=== PATIENT | female | born 1975 | race Caucasian/White ===

== ENCOUNTER 2023-06-24 13:04 | Emergency (ER) | payer OTHER ==
[2023-06-24] MEDS ORDERED: SODIUM CHLORIDE 0.9% 1,000 ML IV STA (13:22)
[2023-06-24] MEDS ORDERED: IBUPROFEN 600 MG TABLET PO STA (13:33)
[2023-06-24] MEDS ORDERED: ACETAMINOPHEN 325 MG TABLET PO STA (13:33)
[2023-06-24] MEDS ORDERED: HYDROmorphone 0.5 MG/0.5 ML SYRINGE IVP STA (13:34)
--- NOTE | 2023-06-24 13:36 | ED Physician Documentation ---
PD HPI ABD PAIN - Stated complaint Stated Complaint: ABD PX - Chief complaint Chief Complaint: Abd Pain - History obtained from History obtained from: Patient - Additional information Additional information: The patient comes to the emergency department with chief complaint of low abdominal pain, fever, and chills over the last 3 days. She states that she just has a general ache that goes all the way across her low abdomen. She states she has had a uterine ablation a few years ago but other than that, no procedures on her abdomen. No abdominal conditions. She has all her organs. No history of kidney stone or diverticulitis. No dysuria or hematuria. No vaginal discharge. She is . No stool changes, other than the urge to go frequently. No other symptoms of infection, such as cough, shortness of breath, or sore throat. No nausea or vomiting. No other complaints at this time. PD PAST MEDICAL HISTORY - Present Medications Home Medications: Ambulatory Orders Medication Instructions Recorded Confirmed HYDROcod/ACETAM 5/325 [[place] 5/325] 1 - 2 tablet PO Q6H PRN #14 tablet 06/24/23 Ondansetron Odt [Zofran] 4 mg TL Q6H PRN #10 tablet 06/24/23 levoFLOXacin [Levaquin] 500 mg PO QD #14 tablet 06/24/23 metroNIDAZOLE [Flagyl] 500 mg PO BID 14 Days #28 tablet 06/24/23 - Allergies Allergies/Adverse Reactions: Allergies Allergy/AdvReac Type Severity Reaction Status Date / Time No Known Drug Allergies Allergy Verified 06/24/23 13:12 PD ED PE NORMAL - Vitals Vital signs reviewed: Yes - General General: Alert and oriented X 3, No acute distress, Well developed/nourished, Other (The patient appears mildly uncomfortable but otherwise no apparent distress.) - HEENT HEENT: Atraumatic, PERRL, EOMI, Moist mucous membranes - Neck Neck: Supple, no meningeal sign - Cardiac Cardiac: No murmur, Other (Tachycardic rate regular rhythm no murmurs.) - Respiratory Respiratory: No respiratory distress, Clear bilaterally - Abdomen Abdomen: Soft, Non distended, Other (Moderate diffuse abdominal tenderness across the low abdomen with exquisite tenderness in the right flank.) - Derm Derm: Normal color, Warm and dry, No rash - Extremities Extremities: No deformity, No edema - Neuro Neuro: Alert and oriented X 3, 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, Normal speech - Psych Psych: Normal mood, Normal affect Results - Vitals Vitals: Oxygen O2 Source Room air - Labs Labs: Microbiology 06/24/23 13:52 Blood Culture - Preliminary Blood - Left Arm NO GROWTH AFTER 1 DAY 06/24/23 13:39 Blood Culture - Preliminary Blood - Right Iv-Start NO GROWTH AFTER 1 DAY Laboratory Tests 06/24/23 06/24/23 06/24/23 13:14 13:14 13:39 WBC 13.9 H RBC 4.58 Hgb 14.0 Hct 41.6 MCV 90.8 MCH 30.6 MCHC 33.7 RDW 12.3 Plt Count 308 MPV 9.0 Neut # (Auto) 10.7 H Lymph # (Auto) 2.2 [place] # (Auto) 0.8 Eos # (Auto) 0.2 Baso # (Auto) 0.1 Absolute Nucleated RBC 0.00 Nucleated RBC % 0.0 Sodium Potassium Chloride Carbon Dioxide Anion Gap BUN Creatinine Estimated GFR (MDRD) Glucose Lactic Acid Calcium Total Bilirubin AST ALT Alkaline Phosphatase Total Protein Albumin Globulin Albumin/Globulin Ratio Lipase Urine Color YELLOW Urine Clarity CLEAR Urine pH 7.0 Ur Specific [place] 1.020 Urine Protein NEGATIVE Urine Glucose (UA) NEGATIVE Urine Ketones 15 H Urine Occult Blood NEGATIVE Urine Nitrite NEGATIVE Urine Bilirubin NEGATIVE Urine Urobilinogen 0.2 (NORMAL) Ur Leukocyte Esterase NEGATIVE Ur Microscopic Review NOT INDICATED Urine Culture Comments NOT INDICATED Urine HCG, Qual NEGATIVE 06/24/23 06/24/23 13:39 13:39 WBC RBC Hgb Hct MCV MCH MCHC RDW Plt Count MPV Neut # (Auto) Lymph # (Auto) [place] # (Auto) Eos # (Auto) Baso # (Auto) Absolute Nucleated RBC Nucleated RBC % Sodium 135 Potassium 3.7 Chloride 103 Carbon Dioxide 24 Anion Gap 8.0 BUN 7 Creatinine 0.6 Estimated GFR (MDRD) 106 Glucose 104 Lactic Acid 1.0 Calcium 9.4 Total Bilirubin 0.9 AST 11 ALT 18 Alkaline Phosphatase 58 Total Protein 7.7 Albumin 4.3 Globulin 3.4 Albumin/Globulin Ratio 1.3 Lipase 20 Urine Color Urine Clarity Urine pH Ur Specific [place] Urine Protein Urine Glucose (UA) Urine Ketones Urine Occult Blood Urine Nitrite Urine Bilirubin Urine Urobilinogen Ur Leukocyte Esterase Ur Microscopic Review Urine Culture Comments Urine HCG, Qual PD Medical Decision Making - ED course Complexity details: reviewed results, re-evaluated patient, considered differential, d/w patient, d/w family ED course: The patient was treated symptomatically with IV fluids, Dilaudid, ibuprofen, and Tylenol. She was worked up with laboratory studies including CBC, ER abdominal panel, blood cultures, and lactic acid level. Urinalysis was also ordered and ultimately, CT scan of the abdomen and pelvis.The patient was found to have diverticulitis on CT. She was started on antibiotics for this and was found to be feeling much better after symptomatic treatment. Her laboratory studies were reassuring and I felt she was stable for discharge home. We have discussed the need for antibiotics at home and I have prescribed these for her. We have discussed the usual indications for follow-up and return. Departure - Departure Disposition: Home, Self Care Clinical Impression: Diverticulitis of gastrointestinal tract Condition: Stable Instructions: ED Diverticulitis Prescriptions: metroNIDAZOLE [Flagyl] 500 mg PO BID 14 Days #28 tablet levoFLOXacin [Levaquin] 500 mg PO QD #14 tablet HYDROcod/ACETAM 5/325 [[place] 5/325] 1 - 2 tablet PO Q6H PRN #14 tablet PRN Reason: Pain Ondansetron Odt [Zofran] 4 mg TL Q6H PRN #10 tablet PRN Reason: Nausea / Vomiting Comments: Your CT scan shows diverticulitis, and inflammation of pouches that can sometimes protrude from your due to stool wall. While this is not something that everybody has, the presence of the pouches, called diverticulosis, is not an uncommon condition. The condition generally is very treatable with antibiotics and tends to respond very well. Please meat pickler your antibiotics and other meds at the [facility] in [place] this afternoon. Your next dose this will be due tomorrow morning. It would likely be at least a couple of days before you begin to notice an improvement in your symptoms and may be a few days longer than that. You may take the pain and nausea medications as nee ded. You should take ibuprofen 600 mg every 6 hours for fever. If you are not taking the Vicodin, you may take plain Tylenol for your fever, but if you are taking the pain medication, which also contains acetaminophen, you should hold off on taking any plain acetaminophen/Tylenol. If you want to eat you may, but please stick to simple starches that are easy to digest initially, and then progressed to a high-fiber diet to keep your stool soft. Please follow-up with your primary doctor as needed. If you begin to notice that your pain is getting progressively worse despite antibiotics, please return to the emergency department. Forms: PCP List Discharge Date/Time: 06/24/23 16:16
[2023-06-24 13:40] LABS: BILIRUBIN,URINE NEGATIVE (NEGATIVE); GLUCOSE, URINE (UA) NEGATIVE (NEGATIVE); KETONES,URINE (UA) 15 mg/dL (NEGATIVE); LEUKOCYTE ESTERASE, URINE NEGATIVE (NEGATIVE); NITRITE,URINE NEGATIVE (NEGATIVE); OCCULT BLOOD,URINE NEGATIVE (NEGATIVE); PROTEIN,URINE NEGATIVE (NEGATIVE); UROBILINOGEN,URINE 0.2 (NORMAL) E.U./dL (NORMAL)
[2023-06-24 13:45] LABS: BASOPHILS # (AUTO) 0.1 10^3/uL (0.0-0.1); BASOPHILS % (AUTO) 0.4 %; EOSINOPHILS # (AUTO) 0.2 10^3/uL (0.0-0.7); EOSINOPHILS % (AUTO) 1.2 %; HCT - HEMATOCRIT 41.6 % (37.0-47.0); LYMPHOCYTES # (AUTO) 2.2 10^3/uL (1.5-3.5); LYMPHOCYTES % (AUTO) 15.9 %; MEAN CORPUSCULAR HEMOGLOBIN 30.6 pg (27.0-31.0); MEAN CORPUSCULAR HGB CONC 33.7 g/dL (32.0-36.0); MEAN CORPUSCULAR VOLUME 90.8 fL (81.0-99.0); MONOCYTES # (AUTO) 0.8 10^3/uL (0.0-1.0); MONOCYTES % (AUTO) 5.5 %; NEUTROPHILS # (AUTO) 10.7 10^3/uL (1.5-6.6); NEUTROPHILS % (AUTO) 76.6 %; PLT - PLATELET COUNT 308 10^3/uL (130-450); RED BLOOD COUNT 4.58 10^6/uL (4.20-5.40); RED CELL DISTRIBUTION WIDTH 12.3 % (12.0-15.0); WHITE BLOOD COUNT 13.9 x10^3/uL (4.8-10.8)
[2023-06-24 13:46] LABS: CLARITY,URINE CLEAR (CLEAR)
[2023-06-24 14:01] LABS: ALBUMIN 4.3 g/dL (3.2-5.5); ALBUMIN/GLOBULIN RATIO 1.3 (1.0-2.2); BILIRUBIN,TOTAL 0.9 mg/dL (0.2-1.0); CALCIUM 9.4 mg/dL (8.5-10.3); CREATININE 0.6 mg/dL (0.6-1.3); POTASSIUM 3.7 mmol/L (3.5-4.5); TOTAL PROTEIN 7.7 g/dL (6.4-8.9)
[2023-06-24 14:12] LABS: HCG UR QUAL NEGATIVE
--- NOTE | 2023-06-24 15:07 | CT Report ---
PROCEDURE: ABDOMEN/PELVIS W INDICATIONS: low abd pain, R>L, fever CONTRAST: 100ML OMNI 300 TECHNIQUE: After the administration of intravenous contrast, 5 mm thick sections acquired from the diaphragms to the symphysis. 5 mm thick coronal and sagittal reformats were acquired. For radiation dose reducti on, the following was used: automated exposure control, adjustment of mA and/or kV according to jeremy ent size. COMPARISON: None FINDINGS: Image quality: Excellent. Lung bases and heart: Moderate hiatal hernia. Liver: No solid mass. Gallbladder and biliary tree: No radiopaque stones or wall thickening. No biliary dilation. Spleen: No splenomegaly. Pancreas: No pancreatic ductal dilation. Adrenals: No adrenal nodule. Kidneys and ureters: No hydronephrosis. No renal cystic lesion which requires follow up. No solid mas s. Bowel and peritoneum: Diverticulitis of the sigmoid colon, with associated inflamed diverticulum, per icolic fat stranding and mild wall thickening. No evidence of adjacent perforation. Lymph nodes: No central or retroperitoneal adenopathy. Vessels: No infrarenal aortic aneurysm. PELVIS Reproductive organs: Right ovarian follicle. Bladder: No abnormal wall thickening, accounting for underdistension. Pelvic lymph nodes: No pelvic adenopathy by size criteria. Bones: No aggressive osseous abnormality. Other: Small umbilical hernia containing fat. IMPRESSION: Uncomplicated sigmoid diverticulitis. No evidence of perforation. Moderate hiatal hernia. Reviewed by: Teja Bustillos on 06/24/2023 3:06 PM PDT Approved by: Teja Bustillos on 06/24/2023 3:06 PM PDT Station ID: [id number]
[2023-06-24] MEDS ORDERED: metroNIDAZOLE 250 MG TABLET PO STA (15:15)
[2023-06-24] MEDS ORDERED: levoFLOXacin 250 MG TABLET PO STA (15:15)
[2023-06-24] MEDS ORDERED: ONDANSETRON 4 MG/2 ML VIAL IVP STA (15:15)
[2023-06-24] MEDS ORDERED: HYDROmorphone 1 MG/ML CARPUJECT IVP STA (15:47)
[2023-06-24 16:00] VITALS: BP 124/84; O2SAT 98
== END 2023-06-24 16:16 | disposition home or self-care (01) ==
LOC: ED 13:04
DX: K57.92 Diverticulitis of intestine, part unspecified, without perforation or abscess without bleeding (principal)
CPT/HCPCS: 36415; 74177; 80053; 81003; 81025; 83605; 83690; 85025; 87040; 96374; 96375; 96376; 99283; 99284; A9270; J1170; 81001; 87086